=== PATIENT | female | born 1990 | race Caucasian/White ===

== ENCOUNTER 2016-12-31 16:06 | Emergency (ER) | payer OTHER ==
[~2016-12-31] VITALS: Ht 170.2 cm; Wt 58.7 kg
[2016-12-31] MEDS ORDERED: SODIUM CHLORIDE 0.9% 1,000ML IVBOLUS ONE (16:30)
[2016-12-31] MEDS ORDERED: SODIUM CHLORIDE FLUSH 10ML SYR IVF ONE (16:30)
[2016-12-31 16:43] LABS: BLOOD UREA NITROGEN 12 mg/dL (7-18)
[2016-12-31] MEDS ORDERED: ONDANSETRON 2MG/ML, 2ML IVPush ONE (17:00)
[2016-12-31] MEDS ORDERED: LORazepam 2 MG/ML, 1ML IVPush ONE (17:00)
[2016-12-31] MEDS ORDERED: ONDANSETRON 2MG/ML, 2ML ONE (17:18)
[2016-12-31] MEDS ORDERED: LORazepam 2 MG/ML, 1ML ONE (17:22)
[2016-12-31 19:17] VITALS: BP 117/68
== END 2016-12-31 19:20 | disposition home or self-care (01) ==
LOC: ED 16:56
DX: F41.1 Generalized anxiety disorder (principal)
CPT/HCPCS: 36415; 80048; 82040; 85025; 96361; 96374; 96375; 99284; J2060; J2405; J7030